=== PATIENT | female | born 1940 | race Caucasian/White ===

== ENCOUNTER 2017-12-12 11:54 | Emergency (ER) | payer MEDICARE ==
[2017-12-12] MEDS ORDERED: NORCO 5/325 PO ONE (16:56)
--- NOTE | 2017-12-12 17:00 | Emergency Department Report ---
Blank Doc - Documentation Documentation: 77 yo femaile with a past medical history diabetes, hypertension, and elevated cholesterol process the hospital complaints of lower back pain L left buttock pain since this morning. Patient presents with her temporary health pharmacy care coordinator at the bedside. Patient complains of pain radiation down left leg. No fall reported. Pt ambulates with a cane at baseline. No fever. Please complains of mild hematuria. Pt attempted to see PMD González Meier, but could not be seen. orders cbc, bmp, ua ct abd pelvis noncontrast [facility]
[2017-12-12 17:27] LABS: Bilirubin,Urine NEG (Negative); Blood,Urine NEG (Negative); Color,Urine Yellow (Yellow); Hyaline Casts,Urine 1 /LPF; Mucus,Urine 3+ /HPF; Urobilinogen,Urine < 2.0 mg/dL (<2.0)
[2017-12-12 17:36] LABS: Basophils # (Auto) 0.1 K/mm3 (0.0-0.1); Basophils % (Auto) 1.5 % (0.0-1.8); Eosinophils % (Auto) 0.4 % (0.0-4.3); Hematocrit 39.8 % (30.3-42.9); Hemoglobin 13.6 gm/dl (10.1-14.3); Lymphocytes # (Auto) 1.8 K/mm3 (1.2-5.4); Lymphocytes % (Auto) 19.6 % (13.4-35.0); Mean Corpuscular HGB Conc 34 % (30-34); Mean Corpuscular Hemoglobin 31 pg (28-32); Mean Corpuscular Volume 91 fl (79-97); Monocytes % (Auto) 10.3 % (0.0-7.3); Platelet Count 224 K/mm3 (140-440); Red Blood Count 4.37 M/mm3 (3.65-5.03); Red Cell Distribution Width 13.5 % (13.2-15.2)
[2017-12-12 17:47] LABS: BUN/Creatinine Ratio 48; Blood Urea Nitrogen 24 mg/dL (7-17); Calcium 9.7 mg/dL (8.4-10.2); Hemolysis Index 7
--- NOTE | 2017-12-12 18:18 | Cat Scan Report ---
FINAL REPORT EXAM: CT ABDOMEN PELVIS WO CON HISTORY: mid back pain, left hip pain, hematuria to TECHNIQUE: CT abdomen and pelvis without contrast PRIORS: None. FINDINGS: No acute abnormality identified in the lung bases. No focal abnormality identified within the liver parenchyma. The spleen demonstrates normal size and attenuation. No pancreatic abnormalities seen. Kidneys demonstrate no evidence of hydronephrosis or nephrolithiasis. No ureteral calculus identified. The adrenal glands are unremarkable. Abdominal aorta is normal in caliber. No pathologically enlarged lymph nodes are identified. No signs of free fluid or free air No evidence of small bowel dilatation. The appendix is identified and is normal in size no adjacent inflammatory change seen. Urinary bladder is unremarkable. There are no acute skeletal findings IMPRESSION: Negative. No acute abnormalities seen
--- NOTE | 2017-12-12 19:31 | Emergency Department Report ---
ED Extremity Problem HPI - General Chief complaint: Extremity Injury, Lower Stated complaint: LEFT HIP/BUTTOCK PAIN Time Seen by Provider: 12/12/17 16:49 Source: patient Mode of arrival: Wheelchair Limitations: Language Barrier - History of Present Illness Initial comments: 77-year-old female past medical history hypertension, diabetes, hyperlipidemia presents with complaint of left buttock pain radiating down left lateral aspect of left leg. Patient is accompanied by home health aide. Family friend Mr. Shay is assisting with communication as patient has some limited Malay speaking skills. Patient describes left-sided hip/buttock pain radiating down her left leg. Patient denies bladder or bowel incontinence. States that the pain makes it somewhat difficult for her to walk and it is painful when she sits on her left hip. MD Complaint: extremity pain Location: left Severity scale (0 -10): 8 Quality: aching Consistency: intermittent Improves with: nothing Worsens with: nothing Associated Symptoms: denies other symptoms - Related Data Previous Rx's Medication Instructions Recorded Last Taken Type HYDROcodone/APAP 5-325 [Matthews 1 each PO Q8H PRN #9 tablet 12/12/17 Unknown Rx 5/325] Sulfamethoxazole/Trimethoprim 1 each PO BID #6 tablet 12/12/17 Unknown Rx [Bactrim DS TAB] Allergies Allergy/AdvReac Type Severity Reaction Status Date / Time No Known Allergies Allergy Unverified 12/12/17 12:02 ED Review of Systems ROS: Stated complaint: LEFT HIP/BUTTOCK PAIN Other details as noted in HPI Constitutional: denies: chills, fever Eyes: denies: eye pain, eye discharge, vision change ENT: denies: ear pain, throat pain Respiratory: denies: cough, shortness of breath, wheezing Cardiovascular: denies: chest pain, palpitations Endocrine: no symptoms reported Gastrointestinal: denies: abdominal pain, nausea, diarrhea Genitourinary: denies: urgency, dysuria, discharge Musculoskeletal: as per HPI, arthralgia. denies: back pain, joint swelling Skin: denies: rash, lesions Neurological: denies: headache, weakness, paresthesias Psychiatric: denies: anxiety, depression Hematological/Lymphatic: denies: easy bleeding, easy bruising ED Past Medical Hx - Past Medical History Hx Hypertension: Yes Hx Diabetes: Yes Additional medical history: elevated cholesterol - Social History Smoking Status: Never Smoker Substance Use Type: None - Medications Home Medications: Home Medications Medication Instructions Recorded Confirmed Last Taken Type HYDROcodone/APAP 5-325 [Matthews 1 each PO Q8H PRN #9 tablet 12/12/17 Unknown Rx 5/325] Sulfamethoxazole/Trimethoprim 1 each PO BID #6 tablet 12/12/17 Unknown Rx [Bactrim DS TAB] ED Physical Exam - General Limitations: Language Barrier General appearance: alert, in no apparent distress - Head Head exam: Present: atraumatic, normocephalic - Eye Eye exam: Present: normal appearance, PERRL, EOMI - ENT ENT exam: Present: mucous membranes moist - Neck Neck exam: Present: normal inspection - Respiratory Respiratory exam: Present: normal lung sounds bilaterally. Absent: respiratory distress - Cardiovascular Cardiovascular Exam: Present: regular rate, normal rhythm. Absent: systolic murmur, diastolic murmur, rubs, gallop - GI/Abdominal GI/Abdominal exam: Present: soft, normal bowel sounds - Extremities Exam Extremities exam: Present: normal inspection - Back Exam Back exam: Present: normal inspection - Neurological Exam Neurological exam: Present: alert, oriented X3 - Psychiatric Psychiatric exam: Present: normal affect, normal mood - Skin Skin exam: Present: warm, dry, intact, normal color. Absent: rash ED Course Vital Signs 12/12/17 12/12/17 11:58 17:23 Temperature 98.8 F Pulse Rate 83 Respiratory 18 18 Rate Blood Pressure 156/63 O2 Sat by Pulse 100 Oximetry ED Medical Decision Making - Lab Data Result diagrams: 12/12/17 17:23 12/12/17 17:23 - Medical Decision Making A/P: Left-sided sciatica 1-patient evaluated by Dr. Gotti, CT unremarkable, urinalysis shows moderate leukocytosis, 2-short course norco 3-labs otherwise unremarkable Critical care attestation.: If time is entered above; I have spent that time in minutes in the direct care of this critically ill patient, excluding procedure time. ED Disposition Clinical Impression: Left sided sciatica UTI (urinary tract infection) Qualifiers: Urinary tract infection type: acute cystitis Hematuria presence: without hematuria Qualified Code(s): N30.00 - Acute cystitis without hematuria Disposition: TO HOME OR SELFCARE Is pt being admited?: No Does the pt Need Aspirin: No Condition: Stable Instructions: Sciatica (ED), Urinary Tract Infection in Women (ED) Prescriptions: HYDROcodone/APAP 5-325 [Matthews 5/325] 1 each PO Q8H PRN #9 tablet PRN Reason: Pain Sulfamethoxazole/Trimethoprim [Bactrim DS TAB] 1 each PO BID #6 tablet Referrals: AMERICA STEWART MD [Primary Care Provider] - 3-5 Days Forms: Accompanied Note Time of Disposition: 20:05
[2017-12-12 20:26] VITALS: BP 135/71
== END 2017-12-12 20:25 | disposition home or self-care (01) ==
LOC: ED 11:54
DX: M54.32 Sciatica, left side (principal); M25.552 Pain in left hip; I10 Essential (primary) hypertension; E11.9 Type 2 diabetes mellitus without complications; E78.5 Hyperlipidemia, unspecified
CPT/HCPCS: 36415; 74176; 80048; 81001; 85025; 87086